=== PATIENT | female | born 1960 | race Caucasian/White ===

== ENCOUNTER 2017-05-13 07:41 | Outpatient (CLI) | payer OTHER ==
[~2017-05-13 07:41] MED LIST: LISI-222 PO
[2017-05-13 09:01] LABS: ALANINE AMINOTRANSFERASE 67 U/L (12-78); ALBUMIN 4.3 G/DL (3.4-5.0); ALBUMIN/GLOBULIN RATIO 1.5 (1.1-1.5); ALKALINE PHOSPHATASE 87 IU/L (46-116); ANION GAP 9 (8-16); ASPARTATE AMINO TRANSFERASE 20 U/L (10-37); BILIRUBIN,TOTAL 0.5 MG/DL (0.1-1.0); BLOOD UREA NITROGEN 10 MG/DL (7-18); BUN/CREATININE RATIO 14.5 (6.6-38.0); CALCIUM 9.5 MG/DL (8.5-10.1); CHLORIDE 104 MMOL/L (99-107); CHOL/HDL RATIO 3.4 (0.00-4.99); CHOLESTEROL 235 MG/DL (0-200); CREATININE 0.69 MG/DL (0.40-0.90); GLUCOSE 114 MG/DL (70-104); HDL CHOLESTEROL 69 MG/DL (35-60); LDL CHOLESTEROL 121 MG/DL (50-100); POTASSIUM 4.3 MMOL/L (3.5-5.1); SODIUM 142 MMOL/L (135-145); TOTAL CARBON DIOXIDE 28.7 MMOL/L (24-32); TOTAL PROTEIN 7.1 G/DL (6.4-8.2); TRIGLYCERIDES 312 MG/DL (20-135); eGFR 88 ML/MIN
== END 2017-05-13 23:59 | disposition home or self-care (01) ==
LOC: LAB 07:41
PROVIDERS: ATTEND Family Medicine
DX: E78.5 Hyperlipidemia, unspecified (principal)
CPT/HCPCS: 36415; 80053; 80061

== ENCOUNTER 2018-07-29 07:53 | Outpatient (CLI) | payer OTHER ==
[2018-07-29 09:03] LABS: HEMOGLOBIN A1C 5.8 % (4.5-6.2)
[2018-07-29 09:30] LABS: ALANINE AMINOTRANSFERASE 59 U/L (12-78); ALBUMIN/GLOBULIN RATIO 1.4 (1.1-1.5); ALKALINE PHOSPHATASE 84 IU/L (46-116); ANION GAP 7 (8-16); ASPARTATE AMINO TRANSFERASE 22 U/L (10-37); BILIRUBIN,TOTAL 0.4 MG/DL (0.1-1.0); BLOOD UREA NITROGEN 10 MG/DL (7-18); BUN/CREATININE RATIO 16.7 (6.6-38.0); CHLORIDE 101 MMOL/L (99-107); CHOL/HDL RATIO 3.9 (0.00-4.99); CHOLESTEROL 229 MG/DL (0-200); GLUCOSE 109 MG/DL (70-104); HDL CHOLESTEROL 59 MG/DL (35-60); LDL CHOLESTEROL 129 MG/DL (50-100); POTASSIUM 4.2 MMOL/L (3.5-5.1); SODIUM 137 MMOL/L (135-145); TOTAL CARBON DIOXIDE 29.1 MMOL/L (24-32); TOTAL PROTEIN 6.8 G/DL (6.4-8.2); TRIGLYCERIDES 295 MG/DL (20-135); eGFR > 90 ML/MIN
[2018-07-29 09:48] LABS: FERRITIN 283 NG/ML (8-252)
== END 2018-07-29 23:59 | disposition home or self-care (01) ==
LOC: LAB 07:53
PROVIDERS: ATTEND Family Medicine
DX: I10 Essential (primary) hypertension (principal); E78.5 Hyperlipidemia, unspecified
CPT/HCPCS: 36415; 80053; 80061; 82728; 83036

== ENCOUNTER 2020-07-20 07:49 | Outpatient (CLI) | payer OTHER ==
[2020-07-20 09:03] LABS: ALANINE AMINOTRANSFERASE 64 U/L (12-78); ALBUMIN 4.2 G/DL (3.4-5.0); ALBUMIN/GLOBULIN RATIO 1.4 (1.1-1.5); ALKALINE PHOSPHATASE 93 IU/L (46-116); ANION GAP 12 (8-16); ASPARTATE AMINO TRANSFERASE 42 U/L (10-37); BILIRUBIN,TOTAL 0.6 MG/DL (0.1-1.0); BLOOD UREA NITROGEN 10 MG/DL (7-18); BUN/CREATININE RATIO 19.6 (6.6-38.0); CALCIUM 9.1 MG/DL (8.5-10.1); CHLORIDE 102 MMOL/L (99-107); CHOL/HDL RATIO 3.5 (0.00-4.99); CHOLESTEROL 234 MG/DL (0-200); CREATININE 0.51 MG/DL (0.40-0.90); FERRITIN 285 NG/ML (8-252); GLUCOSE 112 MG/DL (70-104); HDL CHOLESTEROL 67 MG/DL (35-60); LDL CHOLESTEROL 123 MG/DL (50-100); POTASSIUM 4.4 MMOL/L (3.5-5.1); SODIUM 140 MMOL/L (135-145); TOTAL CARBON DIOXIDE 26.4 MMOL/L (24-32); TOTAL PROTEIN 7.3 G/DL (6.4-8.2); TRIGLYCERIDES 256 MG/DL (20-135); eGFR > 90 ML/MIN
== END 2020-07-20 23:59 | disposition home or self-care (01) ==
LOC: LAB 07:49
PROVIDERS: ATTEND Anesthesiology
DX: I10 Essential (primary) hypertension (principal); E78.5 Hyperlipidemia, unspecified
CPT/HCPCS: 36415; 80053; 80061; 82728

== ENCOUNTER 2022-08-15 07:16 | Outpatient (CLI) | payer BC ==
[2022-08-15 07:56] LABS: BASOPHILS % (AUTO) 0.8 % (0-1); EOSINOPHILS # (AUTO) 0.1 X10'3 (0-0.9); EOSINOPHILS % (AUTO) 2.6 % (0-6); HEMATOCRIT 39.2 % (35.0-45.0); HEMOGLOBIN 13.4 g/dl (12.0-16.0); LYMPHOCYTES # (AUTO) 1.7 X10'3 (1.1-4.8); LYMPHOCYTES % (AUTO) 35.1 % (21-51); MEAN CORPUSCULAR HEMOGLOBIN 33.2 PG (27.0-31.0); MEAN CORPUSCULAR HGB CONC 34.3 g/dL (33.0-36.5); MEAN CORPUSCULAR VOLUME 96.9 FL (78-98); MONOCYTES # (AUTO) 0.5 X10'3 (0-0.9); MONOCYTES % (AUTO) 11.6 % (2-12); NEUTROPHILS # (AUTO) 2.4 X10'3 (1.8-7.7); NEUTROPHILS % (AUTO) 49.9 % (42-75); PLATELET COUNT 211 X10'3 (140-440); RED BLOOD COUNT 4.04 X10'6 (4.20-5.60); RED CELL DISTRIBUTION WIDTH 12.2 % (11.5-14.5); WHITE BLOOD COUNT 4.7 X10'3 (4.5-11.0)
[2022-08-15 08:08] LABS: ALANINE AMINOTRANSFERASE 63 U/L (12-78); ALBUMIN 4.3 G/DL (3.4-5.0); ALBUMIN/GLOBULIN RATIO 1.7 (1.1-1.5); ALKALINE PHOSPHATASE 83 IU/L (46-116); ANION GAP 10 (8-16); ASPARTATE AMINO TRANSFERASE 37 U/L (10-37); BILIRUBIN,TOTAL 0.5 MG/DL (0.1-1.0); BLOOD UREA NITROGEN 10 MG/DL (7-18); BUN/CREATININE RATIO 16.7 (10.0-20.0); CALCIUM 9.2 MG/DL (8.5-10.1); CHLORIDE 101 MMOL/L (99-107); CHOL/HDL RATIO 3.4 (0.00-4.99); CHOLESTEROL 235 MG/DL (0-200); GLUCOSE 111 MG/DL (70-104); HDL CHOLESTEROL 70 MG/DL (35-60); LDL CHOLESTEROL 106 MG/DL (50-100); POTASSIUM 3.7 MMOL/L (3.5-5.1); SODIUM 138 MMOL/L (135-145); TOTAL PROTEIN 6.9 G/DL (6.4-8.2); TRIGLYCERIDES 286 MG/DL (20-135); eGFR > 90 ML/MIN
== END 2022-08-15 23:59 | disposition home or self-care (01) ==
LOC: LAB 07:16
PROVIDERS: ATTEND Student in an Organized Health Care Education/Training Program
DX: E78.00 Pure hypercholesterolemia, unspecified (principal); I10 Essential (primary) hypertension
CPT/HCPCS: 36415; 80053; 80061; 85025

== ENCOUNTER 2023-09-04 06:48 | Outpatient (CLI) | payer BC ==
[~2023-09-04 06:48] MED LIST changes: +CLON0.1T PO
[2023-09-04 08:14] LABS: BASOPHILS % (AUTO) 0.9 % (0-1); EOSINOPHILS # (AUTO) 0.1 X10'3 (0-0.9); EOSINOPHILS % (AUTO) 2.4 % (0-6); HEMATOCRIT 40.4 % (35.0-45.0); HEMOGLOBIN 13.5 g/dl (12.0-16.0); LYMPHOCYTES # (AUTO) 1.8 X10'3 (1.1-4.8); LYMPHOCYTES % (AUTO) 34.5 % (21-51); MEAN CORPUSCULAR HEMOGLOBIN 32.8 PG (27.0-31.0); MEAN CORPUSCULAR HGB CONC 33.4 g/dL (33.0-36.5); MEAN CORPUSCULAR VOLUME 98.2 FL (78-98); MEAN PLATELET VOLUME 7.2 FL (7.4-10.4); MONOCYTES # (AUTO) 0.7 X10'3 (0-0.9); MONOCYTES % (AUTO) 12.8 % (2-12); NEUTROPHILS # (AUTO) 2.6 X10'3 (1.8-7.7); NEUTROPHILS % (AUTO) 49.4 % (42-75); PLATELET COUNT 192 X10'3 (140-440); RED BLOOD COUNT 4.12 X10'6 (4.20-5.60); RED CELL DISTRIBUTION WIDTH 12.2 % (11.5-14.5); WHITE BLOOD COUNT 5.2 X10'3 (4.5-11.0)
[2023-09-04 08:38] LABS: ALANINE AMINOTRANSFERASE 68 U/L (12-78); ALBUMIN 4.2 G/DL (3.4-5.0); ALBUMIN/GLOBULIN RATIO 1.4 (1.1-1.5); ALKALINE PHOSPHATASE 82 IU/L (46-116); ANION GAP 9 (8-16); ASPARTATE AMINO TRANSFERASE 39 U/L (10-37); BILIRUBIN,TOTAL 0.9 MG/DL (0.1-1.0); BLOOD UREA NITROGEN 12 MG/DL (7-18); BUN/CREATININE RATIO 19.7 (10.0-20.0); CALCIUM 9.2 MG/DL (8.5-10.1); CHLORIDE 100 MMOL/L (99-107); CHOL/HDL RATIO 3.7 (0.00-4.99); CHOLESTEROL 216 MG/DL (0-200); CREATININE 0.61 MG/DL (0.40-0.90); GLUCOSE 124 MG/DL (70-104); HDL CHOLESTEROL 59 MG/DL (35-60); LDL CHOLESTEROL 92 MG/DL (50-100); POTASSIUM 4.3 MMOL/L (3.5-5.1); SODIUM 138 MMOL/L (135-145); TOTAL PROTEIN 7.2 G/DL (6.4-8.2); TRIGLYCERIDES 389 MG/DL (20-135); eGFR > 90 ML/MIN
== END 2023-09-04 23:59 | disposition home or self-care (01) ==
LOC: LAB 06:48
PROVIDERS: ATTEND Student in an Organized Health Care Education/Training Program
DX: I10 Essential (primary) hypertension (principal); E78.00 Pure hypercholesterolemia, unspecified
CPT/HCPCS: 36415; 80053; 80061; 85025

== ENCOUNTER 2024-01-05 10:17 | Outpatient (CLI) | payer BC ==
[~2024-01-05 10:17] MED LIST changes: +CLON0.1T2 PO
[2024-01-08] MEDS ORDERED: IBUP-2697 PO (10:12)
[2024-01-08] MEDS ORDERED: OMEG-270 PO (10:12)
[2024-01-08] MEDS ORDERED: ATOR40TA72 PO (10:12)
[2024-01-08] MEDS ORDERED: AMLO-379 PO (10:12)
[2024-01-08] MEDS ORDERED: ACET-1008 PO (10:18)
[2024-01-08] MEDS ORDERED: MV-M1CAP15 PO (10:19)
[2024-01-08] MEDS ORDERED: CALC600T14 PO (10:20)
[2024-01-08] MEDS ORDERED: MAGN400C PO (10:21)
[2024-01-08] MEDS ORDERED: TUMERIC PO (10:24)
[2024-01-08] MEDS ORDERED: GLUC-221 PO (10:25)
== END 2024-01-05 23:59 | disposition home or self-care (01) ==
LOC: RAD 10:17
PROVIDERS: ATTEND Orthopaedic Surgery
DX: M17.11 Unilateral primary osteoarthritis, right knee (principal); M25.861 Other specified joint disorders, right knee; M25.862 Other specified joint disorders, left knee; M25.561 Pain in right knee; M25.562 Pain in left knee
CPT/HCPCS: 73564

== ENCOUNTER 2024-01-05 10:23 | Outpatient (CLI) | payer BC | END 2024-01-05 23:59 | disposition home or self-care (01) | LOC: CARD DIAG 10:23 | PROVIDERS: ATTEND Student in an Organized Health Care Education/Training Program | DX: I34.81 Nonrheumatic mitral (valve) annulus calcification (principal); I10 Essential (primary) hypertension | CPT/HCPCS: 93306 ==

== ENCOUNTER 2024-01-09 07:27 | Day surgery (SDC) | payer BC ==
[~2024-01-09] VITALS: Ht 160 cm; Wt 119.0 kg
[~2024-01-09 07:27] MED LIST changes: +ACET-1008 PO; +AMLO-379 PO; +ATOR40TA72 PO; +CALC600T14 PO; -CLON0.1T PO; +GLUC-221 PO; +IBUP-2697 PO; -LISI-222 PO; +MAGN400C PO; +MV-M1CAP15 PO; +OMEG-270 PO; +TUMERIC PO
[2024-01-09 07:44] VITALS: BP 167/97; PULSE 107; RESP 20
[2024-01-09] MEDS ORDERED: fentaNYL/PF 50MCG/1 ML 2ML syringe ONE (08:12)
[2024-01-09] MEDS ORDERED: MIDAZolam 1 MG/ML 5ML VIAL ONE ×2 (08:12→08:25)
[2024-01-09] MEDS ORDERED: simethicone 40mg/0.6ml oral drops 30ml ONE (08:15)
[2024-01-09 08:46] VITALS: BP 162/96; PULSE 100; RESP 16; O2SAT 96
[2024-01-09 08:56] VITALS: BP 180/95; PULSE 104; RESP 20; O2SAT 96
[2024-01-09 09:06] VITALS: BP 164/93; PULSE 99; RESP 18; O2SAT 96
[2024-01-09 09:14] VITALS: BP 172/84; PULSE 96; RESP 12; O2SAT 97
== END 2024-01-09 09:21 | disposition home or self-care (01) ==
LOC: GI LAB 07:27
PROVIDERS: ATTEND Internal Medicine Gastroenterology
DX: Z12.11 Encounter for screening for malignant neoplasm of colon (principal); D12.3 Benign neoplasm of transverse colon; K57.30 Diverticulosis of large intestine without perforation or abscess without bleeding
CPT/HCPCS: 45385; 99152; A4620; C1889; J2250; J3010; J7030

== ENCOUNTER 2024-05-11 05:42 | Day surgery (SDC) | payer BC ==
[2024-05-04 07:46] LABS: BASOPHILS # (AUTO) 0.1 X10'3 (0-0.2); BASOPHILS % (AUTO) 1.1 % (0-1); EOSINOPHILS # (AUTO) 0.1 X10'3 (0-0.9); LYMPHOCYTES # (AUTO) 1.7 X10'3 (1.1-4.8); LYMPHOCYTES % (AUTO) 31.3 % (21-51); MEAN CORPUSCULAR HEMOGLOBIN 33.2 PG (27.0-31.0); MEAN CORPUSCULAR HGB CONC 33.8 g/dL (33.0-36.5); MEAN CORPUSCULAR VOLUME 98.3 FL (78-98); MEAN PLATELET VOLUME 7.3 FL (7.4-10.4); MONOCYTES # (AUTO) 0.5 X10'3 (0-0.9); MONOCYTES % (AUTO) 9.7 % (2-12); NEUTROPHILS % (AUTO) 55.9 % (42-75); PRE OP HEMOGLOBIN 13.5 g/dL (12.0-16.0); PRE OP PLATELET COUNT 223 X10'3 (140-440); PRE OP WHITE BLOOD COUNT 5.4 10'3 (4.8-10.8); RED BLOOD COUNT 4.07 X10'6 (4.20-5.60); RED CELL DISTRIBUTION WIDTH 12.4 % (11.5-14.5)
[2024-05-04 08:17] LABS: ALBUMIN 4.1 G/DL (3.4-5.0); ALBUMIN/GLOBULIN RATIO 1.2 (1.1-1.5); ALKALINE PHOSPHATASE 105 IU/L (46-116); BLOOD UREA NITROGEN 9 MG/DL (7-18); BUN/CREATININE RATIO 14.8 (10.0-20.0); CALCIUM 8.9 MG/DL (8.5-10.1); CHLORIDE 97 MMOL/L (99-107); CREATININE 0.61 MG/DL (0.40-0.90); PRE OP ANION GAP 11 (8-16); PRE OP AST 74 U/L (10-37); PRE OP BILIRUB, TOTAL 0.6 MG/DL (0.0-1.0); PRE OP GLUCOSE 109 MG/DL (70-104); PRE OP POTASSIUM 4.6 MMOL/L (3.4-5.1); PRE OP SODIUM 133 MMOL/L (135-145); TOTAL CARBON DIOXIDE 24.9 MMOL/L (24-32); TOTAL PROTEIN 7.5 G/DL (6.4-8.2); eGFR > 90 ML/MIN
[2024-05-04 08:22] LABS: PRE OP ALT 101 U/L (30-65)
[2024-05-11] VITALS (29 sets, daily range): BP systolic 80–158; BP diastolic 43–96; PULSE 56–105; RESP 11–20; TEMP 98.3; O2SAT 94–99
[~2024-05-11] VITALS: Ht 160 cm; Wt 119.0 kg
[~2024-05-11 05:42] MED LIST changes: -AMLO-379 PO; +AMLO-382 PO; +CELE-127 PO; +IBUP-24 PO; -IBUP-2697 PO
[2024-05-11] MEDS: tranexamic acid 650mg tablet PO ONE (06:21)
[2024-05-11] MEDS: famotidine 20mg tablet PO ONE (06:21)
[2024-05-11] MEDS: ringers solution, lacted 1,000 ML IV SCH (06:22)
[2024-05-11] MEDS: ceFAZolin 2gm in dextrose, iso 50 ML IV ONE (06:23)
[2024-05-11] MEDS: VANCOMYCIN/H2O 1.5g/300mL PB 300 ML IV ONE (06:23)
[2024-05-11] MEDS ORDERED: BUPIVAcaine/PF 5 mg/ml 10ml ONE (06:40)
[2024-05-11] MEDS ORDERED: ketorolac trometh 30MG/ML vial 30 MG/ML VIAL ONE (06:40)
[2024-05-11] MEDS ORDERED: ROPIVAcaine 0.5% (5mg/ml) 30ml vial ONE (07:01)
[2024-05-11] MEDS ORDERED: midazolam 1 mg/ML 2ml injection ONE ×4 (07:07→16:05)
[2024-05-11] MEDS ORDERED: cloNIDine hcl/PF 100mcg/ml inj ONE (07:17)
[2024-05-11] MEDS ORDERED: BUPIVAcaine/dex-water/PF 7.5 mg/ml 2ml ampul ONE (07:18)
[2024-05-11] MEDS ORDERED: MIDAZolam 1 MG/ML 5ML VIAL ONE (07:19)
[2024-05-11] MEDS ORDERED: fentaNYL/PF 50MCG/1 ML 2ML syringe ONE ×2 (07:19→15:45)
[2024-05-11] MEDS ORDERED: potassium cl 20mEq in 1/2 NS 1,000 ML IV SCH (07:30)
[2024-05-11] MEDS ORDERED: ibuprofen 200mg tablet PO PRN (07:30)
[2024-05-11] MEDS ORDERED: bisacodyl 10mg suppository rectal RC PRN (07:30)
[2024-05-11] MEDS ORDERED: oxyCODONE IR 5mg (immed. release) tablet PO PRN (07:30)
[2024-05-11] MEDS ORDERED: HYDROmorphone 1 mg/ml syringe IV PRN (07:30)
[2024-05-11] MEDS ORDERED: acetaminophen 325mg tablet PO PRN (07:30)
[2024-05-11] MEDS ORDERED: diphenhydrAMINE 25mg capsule PO PRN ×2 (07:30)
[2024-05-11] MEDS ORDERED: ondansetron/PF 4mg/2ml inj IV PRN ×2 (07:30→07:50)
[2024-05-11] MEDS ORDERED: magnesium hydroxide 30ml (MOM) UD suspension PO PRN (07:30)
[2024-05-11] MEDS ORDERED: HYDROmorphone inj. 0.5 MG/0.5 ML DISP.SYRIN IV PRN (07:30)
[2024-05-11] MEDS ORDERED: naloxone 0.4 mg/ml inj IV PRN (07:30)
[2024-05-11] MEDS ORDERED: proCHLORperazine 10 MG/2 ml inj IV PRN (07:50)
[2024-05-11] MEDS ORDERED: ringers solution, lacted 1,000 ML IV SCH (07:50)
[2024-05-11] MEDS ORDERED: morphine 4 MG/ML inj SYRINge IV PRN (07:50)
[2024-05-11] MEDS ORDERED: meperidine/PF 25mg/ml syringe IV PRN ×3 (07:50)
[2024-05-11] MEDS ORDERED: propofol inj 0 ML IV ONE ×2 (07:57)
[2024-05-11] MEDS ORDERED: propofol inj 20 ML IV ONE ×6 (07:57→16:10)
[2024-05-11] MEDS ORDERED: cloNIDine 0.1 mg tablet PO SCH (08:00)
[2024-05-11] MEDS ORDERED: MV MN PO SCH (08:00)
[2024-05-11] MEDS ORDERED: [UNRECOGNIZED DRUG - OTHER] PO SCH (08:00)
[2024-05-11] MEDS ORDERED: non-formulary drug (Celecoxib 1 CAP) PO SCH (08:00)
[2024-05-11] MEDS ORDERED: magnesium oxide 400mg tablet PO SCH (08:00)
[2024-05-11] MEDS ORDERED: non-formulary drug (Calcium Carbonate (Calcium) 1 TAB) PO SCH (08:00)
[2024-05-11] MEDS ORDERED: amLODIPine 5mg tablet PO SCH (08:00)
[2024-05-11] MEDS ORDERED: LYCOP PO SCH (08:00)
[2024-05-11] MEDS ORDERED: atorvastatin 20mg tablet PO SCH (08:00)
[2024-05-11] MEDS ORDERED: ceFAZolin/D5W- 1GM premix 50 ML IV SCH (08:00)
[2024-05-11] MEDS ORDERED: acetaminophen 325mg tablet PO SCH ×2 (08:00)
[2024-05-11] MEDS ORDERED: OMEGA-3/DHA/EPA/FISH OIL 1 EACH CAPSULE.DR PO SCH (08:00)
[2024-05-11] MEDS ORDERED: vancomycin/NS 1 GM ADD-VANTAGE 250 ML IV SCH (08:00)
[2024-05-11] MEDS ORDERED: VIT K PO SCH (08:00)
[2024-05-11] MEDS ORDERED: COQ10 PO SCH (08:00)
[2024-05-11] MEDS ORDERED: LUT PO SCH (08:00)
[2024-05-11] MEDS ORDERED: BUPIVAcaine/PF 2.5mg/ml (0.25%) 10ml vial ONE (09:40)
[2024-05-11] MEDS: morphine 2 MG/ML inj. syringe IV PRN (11:52)
[2024-05-11] MEDS: oxyCODONE IR 5mg (immed. release) tablet PO PRN (12:29)
[2024-05-11] MEDS ORDERED: LIDOcaine 2% (20mg/ml) 5ml vial ONE (16:05)
[2024-05-11] MEDS ORDERED: ondansetron/PF 4mg/2ml inj ONE (16:05)
[2024-05-11] MEDS ORDERED: dexamethasone sod phosphate 4mg/ml inj. ONE (16:05)
[2024-05-11] MEDS ORDERED: sennosides 8.6mg tablet PO SCH (21:00)
[2024-05-12] MEDS ORDERED: losartan 50mg tablet PO SCH (08:00)
[2024-05-12] MEDS ORDERED: aspirin 325mg tablet PO SCH (08:30)
[2024-05-12] MEDS ORDERED: celeCOXIB 100mg capsule PO SCH (20:00)
[2024-05-13] MEDS ORDERED: acetaminophen 325mg tablet PO PRN (18:20)
== END 2024-05-11 15:39 | disposition home or self-care (01) ==
LOC: PAS 05:42 → PACU 07:33 → UNDOADMIN 07:33 → UNDODISIN 17:21
PROVIDERS: ATTEND Orthopaedic Surgery
DX: M17.11 Unilateral primary osteoarthritis, right knee (principal); I10 Essential (primary) hypertension; E66.9 Obesity, unspecified; E78.5 Hyperlipidemia, unspecified; Z79.899 Other long term (current) drug therapy; Z98.890 Other specified postprocedural states; Z88.2 Allergy status to sulfonamides; Z90.89 Acquired absence of other organs; Z90.710 Acquired absence of both cervix and uterus; Z79.82 Long term (current) use of aspirin; Z82.49 Family history of ischemic heart disease and other diseases of the circulatory system; Z68.42 Body mass index [BMI] 45.0-49.9, adult
CPT/HCPCS: 20985; 27447; 36415; 64447; 80053; 82948; 85025; 87081; 97161; 97530; C1713; C1776; J0665; J0690; J0735; J1885; J2250; J2270; J2704; J3010; J3372; J3490; J7030; J7120; Z7506; Z7508; Z7512; A4215; A4615; A6449; A7000; J1100; J2003; J2405; J2795

== ENCOUNTER 2024-11-02 05:27 | Day surgery (SDC) | payer BC ==
[2024-10-26 07:47] LABS: MEAN PLATELET VOLUME 7.4 FL (7.4-10.4); PRE OP HEMATOCRIT 38.8 % (35.0-45.0); PRE OP HEMOGLOBIN 13.4 g/dL (12.0-16.0); PRE OP PLATELET COUNT 208 X10'3 (140-440); PRE OP WHITE BLOOD COUNT 5.5 10'3 (4.8-10.8); RED CELL DISTRIBUTION WIDTH 13.1 % (11.5-14.5)
[2024-10-26 08:12] LABS: CREATININE 0.52 MG/DL (0.40-0.90); PRE OP ALT 76 U/L (30-65); PRE OP ANION GAP 7 (8-16); PRE OP AST 61 U/L (10-37); PRE OP BILIRUB, TOTAL 0.8 MG/DL (0.0-1.0); PRE OP GLUCOSE 115 MG/DL (70-104); PRE OP POTASSIUM 4.2 MMOL/L (3.4-5.1); PRE OP SODIUM 136 MMOL/L (135-145); TOTAL CARBON DIOXIDE 28.8 MMOL/L (24-32); eGFR > 90 ML/MIN
[~2024-11-02] VITALS: Ht 160 cm; Wt 119.7 kg
[2024-11-02] VITALS (28 sets, daily range): BP systolic 98–167; BP diastolic 45–100; PULSE 65–95; RESP 11–20; TEMP 98.6; O2SAT 95–99
[2024-11-02] MEDS: ringers solution, lacted 1,000 ML IV SCH (06:25)
[2024-11-02] MEDS: ceFAZolin 2gm/dext,iso 50mL 50 ML IV ONE (06:26)
[2024-11-02] MEDS: VANCOMYCIN/H2O 1.5g/300mL PB 300 ML IV ONE (06:26)
[2024-11-02] MEDS ORDERED: ROPIVAcaine 0.5% (5mg/ml) 30ml vial ONE ×2 (06:44→09:06)
[2024-11-02] MEDS ORDERED: midazolam 1 mg/ML 2ml injection ONE (07:14)
[2024-11-02] MEDS ORDERED: cloNIDine hcl/PF 100mcg/ml inj ONE (07:22)
[2024-11-02] MEDS ORDERED: MIDAZolam 1mg/ml 10ml vial ONE (07:24)
[2024-11-02] MEDS ORDERED: fentaNYL/PF 50MCG/1 ML 2ML syringe ONE (07:24)
[2024-11-02] MEDS ORDERED: ringers solution, lacted 1,000 ML IV SCH (08:50)
[2024-11-02] MEDS ORDERED: morphine 4 MG/ML inj SYRINge IV PRN (08:50)
[2024-11-02] MEDS ORDERED: labetalol 20mg/4ml (5mg/ml) syringe IV PRN (08:50)
[2024-11-02] MEDS ORDERED: ondansetron/PF 4mg/2ml inj IV PRN (08:50)
[2024-11-02] MEDS ORDERED: hydrALAZINE 20mg/ml inj. IV PRN (08:50)
[2024-11-02] MEDS ORDERED: HYDROmorphone/PF 0.2 MG/ML SYRINGE IV PRN (08:50)
[2024-11-02] MEDS ORDERED: propofol inj 20 ML IV ONE ×3 (09:06)
--- NOTE | 2024-11-02 09:58 | OPERATIVE REPORT ---
Operative Report Operative Report OPERATIVE REPORT [facility] [address] [place] [address] Date of service: November 02, 2024 PREOPERATIVE DIAGNOSIS M17..16 Unilateral primary osteoarthritis, left knee POSTOPERATIVE DIAGNOSIS M1..16 Unilateral primary osteoarthritis, left knee Operation Performed 85065 Total Knee Arthroplasty [place]: [place] [id number] Computer Assisted Navigation Musculoskeletal - Imageless Procedure: Computer-assisted, robotically-assisted, left total knee arthroplasty. Surgeon: Dr. Jimmy Damon Consumer Attorney: Willa najera PA-C Anesthesiologist: Dr. Tyler Anesthesia: Spinal anesthetic Indications: 63-year-old female who has chronic osteoarthritis of the left knee with severe pain and limitation of activities despite extensive non-operative management. This patient has had extensive conservative treatment of knee joint arthritis, including rest, external joint support, anti-inflammatory medications, physical therapy, and corticosteroid injection. Physical therapy has been provided, along with a home exercise program prior to making the decision to proceed with surgical treatment. This therapeutic intervention did not provide any substantial relief of symptoms or improvement in function. The patient has been utilizing a cane, set of crutches, or walker, for more than 3 months prior to deciding to proceed with surgery. These interventions have not provided sufficient relief of pain to allow improvement in function. The patient has utilized non-steroidal anti-inflammatory medications for relief of pain over an extended period of time (more than 2 months), and has not experienced sufficient improvement in symptoms. Despite these treatments, this patient has continued difficulties with pain and limited function. They are unable to walk long distances, do vigorous activities, sit or sleep comfortably. Total knee replacement is the next reasonable step in terms of treatment. Indications for operations administrative assistant surgeon: A second set of skilled hands with specific orthopedic knowledge of the surgical procedure and orthopedic surgical techniques was necessary to accomplish this operation successfully, and with the least amount of morbidity for the patient. This facilitated operative exposure, manipulation and handling of tissues, placement of any implants, and accomplishment of wound closure. Findings: There was indeed a very severely arthritic knee, with loss of cartilage, exposed bone, and marginal osteophytes. The lateral compartment was particularly bad. A 8 degree valgus deformity and 2 degree flexion contracture were measured preoperatively. Post operative alignment was 0 varus, and 4 extension. Complications: None Estimated Blood Loss: 200 cc Implants: A Terry Persona CR total knee system was utilized with a size seven left bone ingrowth femoral component, a size D left bone ingrowth tibial component, and a 32 mm cemented patellar component. A 14 mm medial congruent right tibial insert was utilized. The [employer] Plus robotically assisted total knee arthroplasty system and computer was utilized. Procedure: The risks, benefits, expected results, and possible complications of the planned procedure had been explained to the patient and informed consent obtained. The patient was taken to the operating room and underwent a spinal anesthetic. The patient was placed in the supine position on the operating table, and the left leg was prepped and draped in the usual fashion. A timeout was taken prior to surgery, confirming patient identification, operative side operative site, planned procedure, administration of pre-operative antibiotics, site marking, and presence of all necessary implants and instruments, x-rays and equipment. A standard anterior, slightly mediall approach was performed with a medial parapatellar arthrotomy, and a VMO split. Time was then spent removing excessive synovial tissue and exposing the medial and lateral gutters, as well as moving the anterior sections of the residual menisci. The patella was mobilized to be able to be retracted laterally. This gave exposure of the anterior aspect of the knee. Attention was then directed to the patella. An oscillating saw was utilized to make a flat cut in a freehand manner, removing approximately 9 mm of thickness. The patella was then sized and drilled for the appropriate size patella implant. Infrared arrays were then placed on the femur and the tibia. Utilizing the [employer] computer system, the hip, knee, and ankle were landmarked in usual fashion. The initial alignment measurements were then taken confirming the above listed deformity. Surgical planning was then carried out on the computer, confirming alignment of components, sizing, and gap balancing. Appropriate soft tissue releases were performed. The robot was then utilized to make the distal femoral cut. The femur was prepared in 4 degrees of flexion and neutral coronal alignment. The distal femoral 4 in 1 block was placed with the robot, and the remaining femoral cuts also performed. The robot was then utilized to cut the proximal tibia in 5 degrees of flexion and neutral coronal alignment. The computer was then utilized to check longitudinal alignment and soft tissue balance, and this confirmed excellent alignment. Next the dynamic balancing block was utilized to check and adjust soft tissue balancing. Finally, attention was directed to the proximal tibia. The implant was sized and properly rotated, and the peg punch performed. Final check of alignment and balancing was then carried out, as well as final removal and cleaning up of soft tissue such as meniscal remnants and osteophytes. Cement was then mixed; one batch was utilized for the patella. The tibia was impacted with the mallet, seating it quite nicely in its proper rotational alignment. The femoral cuts were cleaned with a pulsating lavage and then dried with the lap sponges, and the femur was impacted into position with a mallet. The patella was held firmly in place with a clamp. Excess cement was removed around the margins of the patella as the cement cured. Pressure was held on the femoral component and tibia by placing a spacer and bringing the leg to full extension and applying axial and hyperextension force. Upon complete hardening of all cement, the knee was inspected and excess cement removed. We lavaged the knee to wash out any debris. The tibial trial spacer was replaced and overall alignment checked with computer, ensuring we had full extension of the knee, and appropriate medial and lateral soft tissue balance, as well as flexion and extension balance. The wound was irrigated thoroughly one more time and then dried with lap sponges. The final tibial spacer was impacted and locked into the locking mechanism without difficulty After final irrigation and suction of excess fluid, the knee was infiltrated with marcaine for postoperative pain control. The tibial and femoral navigation pins and arrays were removed. The wound was then closed in layers including retinacular closure, subcutaneous tissue, and skin. Sterile dressing was ap plied and the patient was returned to the recovery room in satisfactory condition. Electronically Signed by: Jimmy Damon MD Doctor, Orthopedic Surgery Signed on: 11/02/2024 09:57 AM JIMMY DAMON MD Nov 02, 2024 09:58
[2024-11-02] MEDS: acetaminophen 1,000mg/100ml IV 100 ML IV PRN (10:40)
[2024-11-02] MEDS: HYDROmorphone/PF 0.2 MG/ML SYRINGE IV PRN (10:58)
[2024-11-02] MEDS: ketorolac trometh 30MG/ML vial 30 MG/ML VIAL IV STA (11:04)
[2024-11-02] MEDS: HYDROcodone/acetaminophen 10/325mg tab PO PRN (12:06)
== END 2024-11-02 16:13 | disposition home or self-care (01) ==
LOC: PAS 05:27 → PAS IN 08:21 → PAS 16:13
PROVIDERS: ATTEND Orthopaedic Surgery
DX: M17.12 Unilateral primary osteoarthritis, left knee (principal); G89.18 Other acute postprocedural pain; I10 Essential (primary) hypertension; E78.5 Hyperlipidemia, unspecified; E66.9 Obesity, unspecified; M19.90 Unspecified osteoarthritis, unspecified site; Z90.49 Acquired absence of other specified parts of digestive tract; Z90.89 Acquired absence of other organs; Z96.642 Presence of left artificial hip joint; Z96.651 Presence of right artificial knee joint; Z98.890 Other specified postprocedural states; Z68.42 Body mass index [BMI] 45.0-49.9, adult; Z88.2 Allergy status to sulfonamides
CPT/HCPCS: 20985; 27447; 36415; 64447; 80053; 82948; 85025; 97161; C1713; C1776; J0131; J0735; J1171; J1885; J2250; J2704; J2795; J3010; J3375; J7030; J7120; S2900; Z7506; Z7508; Z7512; A4215; A6449; A7000